=== PATIENT | female | born 1940 | race Caucasian/White ===

== ENCOUNTER 2016-11-27 12:34 | Emergency (ER) | payer MEDICARE, OTHER ==
--- NOTE | ~2016-11-27 | ER ---
ADMIT: 11/27/2016 RM/LOC: ER [facility] MR#: [id number] [address] [id number] LISANDRO BRICE [address] [place] [address] Emergency Room Report SEX: F AGE: 76 : 1940 DATE: 11/27/2016 TIME: 1234 hours. Please refer to my T-sheet for complete H and P. Briefly, the patient is a 76-year-old, who is about 10 days status post left forearm surgery done by Dr. Palma. She has been having trouble getting her pain controlled. She recently noticed her blood pressures were low, and on , she had stood up in the kitchen and fell down, hit her head on the oven door. She has been doing okay, still having a headache. They called her primary. She has an appointment with them tomorrow, but she was told to stop her blood pressure, and now she feels her headaches are more and her blood pressure is high. So she comes in for evaluation. PHYSICAL EXAMINATION: VITAL SIGNS: Blood pressure 199/96, pulse 77, respirations 16, temperature 97.9, O2 sats 100%. GENERAL: She is in no acute distress. HEENT: Head reveals a contusion on the posterior occipital region. No gross deformities. NECK: Soft, supple. No pain to palpation. LUNGS: Clear. HEART: Regular. ABDOMEN: Soft. SKIN: No rash. EXTREMITIES: Her left arm is in a short-arm cast. She is neurovascularly intact distally. EMERGENCY DEPARTMENT COURSE: We did an EKG which was sinus rhythm, rate 59, no changes. CBC normal except white count 4.5. Chemistries normal. Troponin negative. CT head showed no acute findings. I gave her 500 mL saline bolus, Zofran 4 IV, Toradol 10 IV, and 1 g of Tylenol. Her pain was vastly improved. I had a long discussion and is ready for discharge. ADMIT: 11/27/2016 RM/LOC: [place] [facility] MR#: [id number] [facility] [address] [place] [id number] PATRICK BRICEAl Robles [address] [place] [address] Emergency Room Report SEX: F AGE: 76 : 1940 ASSESSMENT: 1. Orthostatic syncope from adding a recent blood pressure med and her surgery. 2. Head contusion with a negative CAT scan. 3. Left arm pain from recent surgery. PLAN: We are going to [place] as she has not tried those for pain control. Restart her losartan, hold on the other one. Keep her appointment tomorrow. Return if worse. Kemal Alvarez MD/ rahat JOB #: [id number] CC: Kemal Alvarez MD, Attending Physician UNKNOWN, Family Physician Fredi Palma MD
[~2016-11-27 12:34] MED LIST: ACTONEL35 MG PO; ASA CHILDREN'S81 MG PO; BENTYL-DPS20 MG PO; CALCIUM 600 +1 EAC3 PO; CELEBREX200 MG PO; COZAAR DPS50 MG PO; GLUCOSAMINE HC500 MG PO; IMODIUM DPS2 MG PO; MEGA BIOTIN10000 MCG PO; NORVASC5 MG PO; OMEGA-3 DPS1000 MG PO; OXY IR DPS5 MG PO; ULTRAM DPS50 MG PO; XARELTO10 MG PO; ZOLOFT DPS100 MG PO; ZOLOFT DPS50 MG PO
== END 2016-11-27 16:00 | disposition home or self-care (01) ==
LOC: ER 12:34
DX: R55 Syncope and collapse (principal); S00.93XA Contusion of unspecified part of head, initial encounter; M79.602 Pain in left arm; I10 Essential (primary) hypertension; F32.9 Major depressive disorder, single episode, unspecified; M19.90 Unspecified osteoarthritis, unspecified site; Z90.49 Acquired absence of other specified parts of digestive tract; W19.XXXA Unspecified fall, initial encounter